=== PATIENT | male | born 1960 | race Caucasian/White ===

== ENCOUNTER 2020-11-14 10:01 | Outpatient (REF) | payer OTHER, SELFPAY ==
--- NOTE | ~2020-11-14 | XR_ITS ---
EXAMINATION: XR FEMUR, RIGHT CLINICAL INFORMATION: Right hip and femur pain COMPARISON: None TECHNIQUE: AP and lateral views of the right femur were obtained. FINDINGS: There is no evidence of acute fracture or dislocation of the right femur. There is mild spurring about the right hip joint with marked narrowing of the superior joint space. There is calcification about the greater trochanter consistent with calcific tendinitis. No destructive bony lesion is identified. No knee effusion is seen. Patella spurs at insertion quadriceps tendon is noted. XR/XR femur RT 2V IMPRESSION: Calcific tendinitis of the greater trochanter of the right femur.
== END 2020-11-14 10:02 | disposition home or self-care (01) ==
LOC: HO.XRAY 10:01
PROVIDERS: PCP Internal Medicine; Referring Provider Orthopaedic Surgery; Visit Provider Internal Medicine
DX: M25.551 Pain in right hip (principal); M79.661 Pain in right lower leg
CPT/HCPCS: 73552

== ENCOUNTER → 2020-11-21 10:38 | Outpatient (BNVA) | payer OTHER, SELFPAY | PROVIDERS: Visit Provider Orthopaedic Surgery ==

== ENCOUNTER 2021-09-24 13:03 | Outpatient (REF) | payer OTHER, SELFPAY ==
--- NOTE | ~2021-09-24 | MR_ITS ---
EXAMINATION: MR HIP WITHOUT CONTRAST, RIGHT CLINICAL INFORMATION: Pain. COMPARISON: X-rays of right femur 11/14/2020. TECHNIQUE: MRI of the right hip was obtained using routine sequences on a high-field strength magnet. FINDINGS: SUBCUTANEOUS SOFT TISSUES: Normal. MUSCLES AND TENDONS: There is a small focus of low signal with surrounding edema adjacent to the insertion of the lateral portion of the gluteus medius tendon. This is compatible with calcific tendinitis. This low signal focus measures 10 x 7 x 3 mm. Remaining muscles and tendons normal. BONE/ARTICULAR CARTILAGE: There is nonuniform but primarily high-grade cartilage loss present along the superior aspect of the hip joint particularly anterior superiorly. There is associated subchondral cystic change and edema. There are marginal osteophytes at the femoral head neck junction. Findings indicative of moderate to severe osteoarthritis. There is a mild joint effusion and synovitis. LABRUM/CAPSULE: There is a lobulated cystic collection abutting the anterior superior labrum. This cyst measures 18 x 14 x 8 mm. There is heterogeneity of this portion of the labrum as well as some surface blunting. The labrum communicates with the base of the labrum likely reflecting degenerative tearing along the base. Additional scattered heterogeneity throughout the remaining portion superior labrum which may reflect degenerative change of additional nondisplaced tearing. NEUROVASCULAR STRUCTURES: Normal. ADDITIONAL FINDINGS: A limited evaluation of the pelvis is performed with a large [id number] T1-weighted sequence. Partial fusion of the right sacroiliac joint. Bilateral facet arthrosis at L5-S1. Intrapelvic soft tissues are normal. MR/MR hip RT wo con IMPRESSION: Moderate to severe osteoarthritis of the right hip joint with joint effusion and synovitis. Degenerative tearing of the anterior superior labrum with a paralabral cyst abutting the anterior superior portion of the labrum. Possible additional degenerative change or nondisplaced degenerative tearing of the more posterior aspect of the superior labrum. Findings compatible with calcific tendinitis of the gluteus medius tendon.
== END 2021-09-24 13:04 | disposition home or self-care (01) ==
LOC: HO.MRI 13:03
PROVIDERS: PCP Internal Medicine; Visit Provider Internal Medicine
DX: M25.551 Pain in right hip (principal)
CPT/HCPCS: 73721